=== PATIENT | female | born 1985 | race Caucasian/White ===

== ENCOUNTER → 2016-07-26 | Outpatient (CLI) | payer OTHER ==
[~2016-07-26] MED LIST: IOHEXOL 240 MG/ML 50ML VIAL. ONE; IOHEXOL 240 MG/ML 50ML VIAL. PO ONE
[2016-07-26] MEDS: IOHEXOL 300 MG/ML 75 ML VIAL. IV ONE (12:52)
--- NOTE | 2016-07-26 15:43 | RAD ---
Indication microhematuria. Axial images of the abdomen and pelvis were obtained. Both IV and oral contrast were administered. Approximately 75 cc of Omnipaque 240 was administered intravenously. No prior imaging is available. The lung bases are clear. The liver and spleen appear unremarkable. The pancreas appears unremarkable. No adrenal masses are seen. The kidneys appear normal. Mass inflammatory process or acute finding in the abdomen is not seen. In the pelvis no mass inflammatory process or significant finding is seen. IMPRESSION: No acute or significant seen in the abdomen or pelvis PQRS Compliance Statement: One or more of the following individualized dose reduction techniques were utilized for this examination: 1. Automated exposure control 2. Adjustment of the mA and/or kV according to patient size 3. Use of iterative reconstruction technique
== END | disposition home or self-care (01) ==
LOC: CT 11:55
PROVIDERS: ATTEND Family Medicine
DX: R31.29 Other microscopic hematuria (principal)
CPT/HCPCS: 74177; Q9966; Q9967